=== PATIENT | female | born 1990 | race Caucasian/White ===

== ENCOUNTER 2019-06-19 20:08 | Inpatient (IN) | payer BC ==
[2019-06-19 21:18] VITALS: BMI 24.6
[2019-06-19] MEDS ORDERED: FLU VACC QS2019-20(6MOS UP)/PF 60 MCG/0.5 ML SYRINGE IM ONE (21:30)
[2019-06-19] MEDS ORDERED: hydrALAZINE 20 MG/ML VIAL SLOW IVP PRN (23:02)
[2019-06-19] MEDS ORDERED: Lidocaine 1% (PF) 30 ML VIAL ONE (23:59)
[2019-06-19] MEDS ORDERED: NS / Oxytocin 40 units/1000ml 0 ML ONE (23:59)
[2019-06-20] MEDS ORDERED: Oxytocin 10 UNITS/ML VIAL ONE
[2019-06-20] MEDS ORDERED: hydrALAZINE 20 MG/ML VIAL SLOW IVP PRN (00:16)
[2019-06-20] MEDS ORDERED: HYDROcodone/Acetaminophen 5/325 mg Tablet PO PRN ×2 (00:16)
[2019-06-20] MEDS ORDERED: Bisacodyl 10 MG SUPP PR PRN (00:16)
[2019-06-20] MEDS ORDERED: Benzocaine-Menthol 82.5 ML CAN TOP PRN (00:16)
[2019-06-20] MEDS ORDERED: Misoprostol 200 MCG TAB VAG PRN (00:16)
[2019-06-20] MEDS ORDERED: Milk Of Magnesia 30 ML UDCUP PO PRN (00:16)
[2019-06-20] MEDS ORDERED: Oxytocin 10 UNITS/ML VIAL IM PRN (00:17)
--- NOTE | 2019-06-20 00:26 | PDOC.OPDEL ---
OB Operative/Delivery Note Delivery Dr/Surgeon: Matt Rdz Assist: Lea Corona RN Pre-Delivery Diagnosis: active labor Procedure/Post Delivery Dx: spontaneous vaginal delivery Weeks gestation: 39 Anesthesia: none - Findings A Sex: female - 1 min: 9 - 5 min: 9 - Additional Findings/Plan Placenta delivered: spontaneous Repaired Obstetrical Laceration: none Estimated blood loss: 50mL Compilations/Other Findings: Precipitous delivery department supervisor while I was en route. arrived to room with vigorous and cord still attached Placenta delivered spontaneously to without complications Post delivery plan: routine recovery
--- NOTE | 2019-06-20 00:28 | PDOC.LDHP ---
Labor and Delivery H&P Chief complaint: contractions HPI: Started having contractions at 1700 this afternoon. They picked up at 1900. Denies ROM. Reports good movement. Current gestational age (weeks): 39 Due date: 06/25/19 Dating criteria: last menstrual period Grav: 3 Para: 2 OB History Details: Precipitous . Current medications: pre-priyanka vitamins, other (synthroid 75mcg PO QD) Allergies/Adverse Reactions: Allergies Allergy/AdvReac Type Severity Reaction Status Date / Time No Known Allergies Allergy Unverified 06/19/19 21:28 - Physical Exam General: breathing through contractions Lungs: nonlabored breathing Abdomen: gravid FHT: category 1 - Vaginal Exam cm dilated: 4 Effacement: 100% Station: 0 - OB Labs Blood type: A RH: positive Antibody Screen: negative HIV: negative RPR: negative HEPSAg: negative 1 hour GCT: negative GBS: negative Urine drug screen: negative Rubella: immune - Assessment L&D Assessment: term patient in labor - Plan Plan: admit to L&D, informed consent obtained
[2019-06-20] MEDS ORDERED: NS / Oxytocin 40 units/1000ml 1,000 ML IV SCH (00:30)
[2019-06-20] MEDS: Ibuprofen 800 MG TAB PO SCH ×3 (03:55→18:33)
[2019-06-20] MEDS: Levothyroxine Sodium 75 MCG TAB PO SCH (05:56)
[2019-06-20] MEDS ORDERED: Ibuprofen 800 MG TAB PO SCH (06:00)
[2019-06-20] MEDS ORDERED: Measles/Mumps/Rubella 10 MCG/0.5 ML VIAL SC ONE (09:00)
[2019-06-20] MEDS ORDERED: Adacel (T-DAP) 0.5 ML SYRINGE IM ONE (09:00)
[2019-06-20] MEDS: Prenatal Vitamin 1 TAB PO SCH (10:04)
[2019-06-20] MEDS: Ferrous Sulfate 325 MG TAB PO SCH ×2 (10:05→18:34)
[2019-06-20] MEDS: Docusate Calcium (SURFAK) 240 MG CAP PO SCH ×2 (10:05→21:37)
--- NOTE | 2019-06-20 14:32 | PDOC.PP ---
Post Progress Note Post Day #: 1 Subjective: Pt is doing well. Slightly nauseated, but not concerned. normally. PO intake tolerated: yes Flatus: yes Ambulation: yes Vital Signs (12 hours) Temp Pulse Resp BP Pulse Ox 06/20/19 11:45 98.5 F 80 20 99/75 06/20/19 08:06 99.3 F 82 20 95/53 L 97 06/20/19 05:11 98.7 F 69 18 104/65 97 06/20/19 02:55 98.4 F 75 18 92 L Weight Weight 162 lb - Physical Examination General: NAD Respiratory: non-labored breathing Abdominal: no distention Extremities: negative homans (B) Skin: no rash Neurological: no gross focal deficits Psychiatric: A&Ox3, normal affect (1) Precipitous delivery Code(s): O62.3 - PRECIPITATE LABOR Status: Acute (2) (spontaneous vaginal delivery) Code(s): O80 - ENCOUNTER FOR FULL-TERM UNCOMPLICATED DELIVERY Status: Acute
[2019-06-20] MEDS ORDERED: Lanolin Ointment 7 GM TUBE TOP PRN (21:19)
[2019-06-20] MEDS ORDERED: Acetaminophen 500 MG TAB PO PRN ×2 (21:29)
[2019-06-21] MEDS ORDERED: Acetaminophen 500 MG TAB PO PRN ×2 (01:07→01:08)
[2019-06-21] MEDS: Ibuprofen 800 MG TAB PO SCH ×2 (02:13→08:55)
[2019-06-21] MEDS: Levothyroxine Sodium 75 MCG TAB PO SCH (06:00)
[2019-06-21] MEDS: Docusate Calcium (SURFAK) 240 MG CAP PO SCH (08:54)
[2019-06-21] MEDS: Prenatal Vitamin 1 TAB PO SCH (08:54)
[2019-06-21] MEDS: Ferrous Sulfate 325 MG TAB PO SCH (08:55)
[2019-06-21 11:35] VITALS: BP 118/67; TEMP 97.7
== END 2019-06-21 14:00 | disposition home or self-care (01) | DRG 807 ==
LOC: L&D/OP 20:08 → L&D-LIB 23:58 → UNDOADMIN 06-20 01:17 → 3SE 06-20 03:06 → L&D-LIB 06-20 03:06
PROVIDERS: ADMIT Student in an Organized Health Care Education/Training Program; ATTEND Student in an Organized Health Care Education/Training Program
PROC: 10E0XZZ Delivery of Products of Conception, External Approach (ICD-10-PCS; principal; 2019-06-19)
DX: O80 Encounter for full-term uncomplicated delivery (principal); Z37.0 Single live birth; Z3A.39 39 weeks gestation of pregnancy
CPT/HCPCS: 99285; J2001; J2590